=== PATIENT | female | born 1990 | race Caucasian/White ===

== ENCOUNTER 2018-08-09 18:26 | Emergency (ER) | payer MEDICAID, OTHER ==
--- NOTE | 2018-08-09 20:23 | EDPHY ---
H & P Stated Complaint: fall, hip L leg pain Time Seen by Provider: 08/09/18 19:54 HPI/ROS: CHIEF COMPLAINT: Left hip pain HISTORY OF PRESENT ILLNESS: 28-year-old female presents after a fall with left hip pain. Yesterday evening she slipped and fell on a stair. She fell directly onto her left hip. Immediate onset of mild pain in the left hip. The pain has gradually increased and now is causing shooting pains down her left leg. She also has mild back pain. No weakness or numbness. Ibuprofen with some relief. REVIEW OF SYSTEMS: complete 10 point ROS reviewed and is negative except for the noted elements in the HPI - Personal History Current Tetanus/Diphtheria Vaccine: Yes Current Tetanus Diphtheria and Acellular Pertussis (TDAP): Yes - Medical/Surgical History Hx Asthma: No Hx Chronic Respiratory Disease: No Hx Diabetes: No Hx Cardiac Disease: No Hx Renal Disease: No Hx Cirrhosis: No Hx Alcoholism: No Hx HIV/AIDS: No Hx Splenectomy or Spleen Trauma: No Other PMH: PTSD, - Social History Smoking Status: Never smoked Alcohol Use: Sober Drug Use: None - Physical Exam Exam: General Appearance: Alert, pleasant Head: Atraumatic Eyes: No conjunctival erythema ENT, Mouth: no bony tenderness Neck: Nontender, range of motion without pain Respiratory: No chest wall tenderness, lungs clear bilaterally Cardiovascular: Regular rate and rhythm Abdomen: Abdomen is soft and nontender Skin: No lacerations, no abrasions Back: No midline T/L/S tenderness Extremities: Pelvis is stable and nontender; tender over the left SI joint, nontender over the left hip, left hip range of motion causes pain referred to the SI joint, negative straight leg raise Neurological: A&Ox3, normal motor function, normal sensory exam, cranial nerves intact Psychiatric: Mood and affect normal Constitutional: Initial Vital Signs Temperature (C) 36.9 C 08/09/18 18:40 Heart Rate 68 08/09/18 18:40 Respiratory Rate 16 08/09/18 18:40 Blood Pressure 131/83 H 08/09/18 18:40 O2 Sat (%) 94 08/09/18 18:40 O2 Delivery Mode Room Air Allergies/Adverse Reactions: haloperidol [From Haldol] Allergy (Verified 08/09/18 18:37) Home Medications: Medication Instructions Recorded Abilify 08/09/18 Acetaminophen 08/09/18 Yvonne Allergy 08/09/18 Clindamycin 1% 08/09/18 Dicyclomine 08/09/18 Naproxen 08/09/18 Prazosin HCl 08/09/18 Promethazine HCl 08/09/18 Prozac 10 MG (*) 08/09/18 Ranitidine HCl 08/09/18 Sumatriptan 08/09/18 hydrOXYzine HCL 08/09/18 Medical Decision Making - Diagnostics Imaging Results: X-ray of the left hip and lumbar spine are unremarkable. Imaging: I viewed and interpreted images myself ED Course/Re-evaluation: This patient presents after a mechanical fall onto the left hip. Symptoms c/w sciatica, with radiation of pain down the left leg. She also has tenderness over the left hip area, consistent with a contusion. I will treat her with ibuprofen. She was informed that if her symptoms worse, she may need to have a follow-up MRI. Hopefully she will get better with symptomatic care. Differential Diagnosis: Differential diagnosis for back pain includes muscular pain, herniated disc, epidural abscess, discitis, spine fracture, intra-abdominal causes and urinary tract infection. - Data Points Medications Given: Discontinued Medications Hydrocodone Bitart/Acetaminophen ([place] 5/325mg Prepack#6) 1 btl TAKEHOME EDNOW ONE Stop: 08/09/18 21:12 Last Admin: 08/09/18 21:20 Dose: 1 btl Ibuprofen (Motrin) 800 mg PO EDNOW ONE Stop: 08/09/18 20:31 Last Admin: 08/09/18 20:35 Dose: 800 mg Departure - Departure Disposition: Home, Routine, Self-Care Clinical Impression: Contusion of left hip, Sciatica of left side Condition: Good Instructions: Hydrocodone/Acetaminophen (By mouth), Contusion in Adults (ED), Lumbar Radiculopathy (ED) Additional Instructions: Ibuprofen 600 mg 3 times daily while the pain persists. Take [place] 1 tablet every 4 hr as needed for severe pain. Return for worsening pain, weakness or numbness. Referrals: [facility] [Other] - As per Instructions
[2018-08-09] MEDS ORDERED: IBUPROFEN 200 MG TAB PO ONE (20:31)
[2018-08-09] MEDS: IBUPROFEN 800 MG TAB PO ONE (20:35)
[2018-08-09] MEDS: HYDROCOD/APAP 5/325 PREPACK#6 BTL TAKEHOME ONE (21:20)
[2018-08-09 21:28] VITALS: BP 122/79
== END 2018-08-09 21:29 | disposition home or self-care (01) ==
DX: S70.02XA Contusion of left hip, initial encounter (principal); W10.8XXA Fall (on) (from) other stairs and steps, initial encounter; M54.32 Sciatica, left side; F43.10 Post-traumatic stress disorder, unspecified

== ENCOUNTER 2018-10-22 17:40 | Emergency (ER) | payer MEDICAID | END 2018-10-22 22:40 | disposition home or self-care (01) ==